=== PATIENT | female | born 1965 | race Caucasian/White ===

== ENCOUNTER 2022-02-24 12:52 | Emergency (ER) | payer SELFPAY ==
[~2022-02-24] VITALS: Ht 154.9 cm; Wt 59.0 kg
[~2022-02-24 12:52] MED LIST: ALBUTEROL S2.5 MG/.5 IN; AMOXICILLIN500 MG PO; BENADRYL 50MG C50 MG PO; CEPHALEXIN500 MG PO; DOXYCYCL HYC100 MG PO; KEFLEX250 MG PO; MEDDOSEPAK PO; MET12.5TAB PO; METOPROL TAR25 M1 PO; PEPCID20 MG PO; PERCOCET 5/321 COMBO PO; ULTRAM50 M1 PO; ZITHROMAX250 MG PO
[2022-02-24 13:00] VITALS: BP 110/67
[2022-02-24 13:40] LABS: URINE BILIRUBIN - DIPSTICK NEGATIVE (NEGATIVE); URINE BLOOD DIPSTICK NEGATIVE (NEGATIVE); URINE COLOR YELLOW; URINE GLUCOSE - DIPSTICK NEGATIVE (NEGATIVE); URINE KETONE NEGATIVE (NEGATIVE); URINE PH 7.5 (4.5-8.0); URINE PROTEIN - DIPSTICK NEGATIVE (NEG-TRACE); URINE UROBILINOGEN - DIPSTICK 0.2 E.U./dL (0.2)
[2022-02-24 14:00] LABS: URINE LEUK ESTERASE SMALL (NEGATIVE); URINE NITRITE - DIPSTICK NEGATIVE (Negative)
[2022-02-24 14:01] LABS: URINE BACTERIA FEW hpf; URINE EPITHELIAL CELLS MODERATE EPI/hpf (0-FEW)
[2022-02-24] MEDS ORDERED: CEPHALEXIN500 MG PO (14:06)
[2022-02-24 14:08] VITALS: BP 110/67
== END 2022-02-24 14:40 | disposition home or self-care (01) | DRG 690 ==
LOC: ED 12:52
PROVIDERS: Family Medicine
DX: N39.0 Urinary tract infection, site not specified (principal); B96.89 Other specified bacterial agents as the cause of diseases classified elsewhere

== ENCOUNTER 2024-02-27 11:55 | Emergency (ER) | payer SELFPAY ==
[~2024-02-27] VITALS: Ht 154.9 cm; Wt 56.0 kg
[2024-02-27] MEDS ORDERED: TETRACAINE HCL 0.5 %/4 ML SOL OS ONE (12:30)
[2024-02-27] MEDS ORDERED: FLUORESCEIN SODIUM 1 MG EA OS ONE (12:30)
[2024-02-27] MEDS ORDERED: IBUPROFEN 600 MG/TAB PO ONE (12:50)
[2024-02-27] MEDS ORDERED: ERYTHROMYCIN OPTHALMIC 5 MG/GM TUBE OS ONE (12:50)
[2024-02-27] MEDS ORDERED: ERYTHROMYCIN O3.5 GM OS (13:12)
[2024-02-27 13:21] VITALS: BP 117/68
== END 2024-02-27 13:39 | disposition home or self-care (01) | DRG 125 ==
LOC: ED 11:55
DX: H18.822 Corneal disorder due to contact lens, left eye (principal); F17.210 Nicotine dependence, cigarettes, uncomplicated